=== PATIENT | female | born 1955 | race Two or more races ===

== ENCOUNTER 2020-12-22 11:24 | Outpatient (CLI) | payer OTHER | END 2020-12-22 11:32 | disposition home or self-care (01) | LOC: NUCLEAR 11:24 | PROVIDERS: ATTEND Internal Medicine Cardiovascular Disease | DX: G45.1 Carotid artery syndrome (hemispheric) (principal) ==

== ENCOUNTER 2021-01-22 09:00 | Outpatient (CLI) | payer OTHER | END 2021-01-22 09:03 | disposition home or self-care (01) | LOC: LAB 09:00 | PROVIDERS: ATTEND Radiology Diagnostic Radiology | DX: N20.0 Calculus of kidney (principal) ==